=== PATIENT | male | born 1940 | race Caucasian/White ===

== ENCOUNTER 2017-10-18 11:08 | Emergency (ER) | payer MEDICARE, BC ==
[~2017-10-18] VITALS: Ht 170.2 cm; Wt 83.4 kg
[2017-10-18] MEDS ORDERED: SILVER NITRATE STICK TP ONE (12:34)
[2017-10-18] MEDS ORDERED: PHENYLEPHRINE NASAL 1%, 15ML SPRAY ONE (12:34)
[2017-10-18] MEDS ORDERED: LIDOCAINE-MPF 1%, 5ML ONE (12:34)
[2017-10-18 14:25] VITALS: BP 159/68
== END 2017-10-18 14:51 | disposition home or self-care (01) ==
LOC: ED 12:00
DX: R04.0 Epistaxis (principal)
CPT/HCPCS: 30901; 99283; 99284